=== PATIENT | male | born 1995 | race Two or more races ===

== ENCOUNTER 2016-09-24 00:56 | Emergency (ER) | payer OTHER ==
[2016-09-24 05:54] LABS: ABSOLUTE MONOCYTES (AUTO) 0.3 10^3/uL (0.1-1.4); ABSOLUTE NEUT (AUTO) 5.4 10^3/uL (1.7-8.2); BASOPHILS % (AUTO) 0.2 % (0-2); EOSINOPHILS % (AUTO) 0.3 % (0-6); HEMOGLOBIN 12.8 g/dL (13.5-17.0); HGB HCT DIFFERENCE -0.6; LYMPHOCYTES % (AUTO) 15.4 % (13-45); MEAN CORPUSCULAR HEMOGLOBIN 24.7 pg (27.0-33.4); MEAN CORPUSCULAR HGB CONC 32.8 g/dL (32.0-36.0); MEAN CORPUSCULAR VOLUME 76 fl (80-97); MONOCYTES % (AUTO) 4.5 % (3-13); RED BLOOD COUNT 5.16 10^6/uL (4.35-5.55); RED CELL DISTRIBUTION WIDTH 14.5 % (11.5-14.0); SEGMENTED NEUTROPHILS % (AUTO) 79.6 % (42-78); WHITE BLOOD COUNT 6.8 10^3/uL (4.0-10.5)
[2016-09-24 06:05] LABS: ANION GAP 18 (5-19); BLOOD UREA NITROGEN 12 mg/dL (7-20); CALCIUM 9.3 mg/dL (8.4-10.2); CARBON DIOXIDE 23 mmol/L (22-30); CHLORIDE 107 mmol/L (98-107); CREATININE RESULT 0.69 mg/dL (0.52-1.25); GLUCOSE 105 mg/dL (75-110); MAGNESIUM 2.1 mg/dL (1.6-2.3); POTASSIUM 4.4 mmol/L (3.6-5.0); SODIUM 147.7 mmol/L (137-145)
--- NOTE | 2016-09-24 06:09 | ER Document Report ---
ED General - General Mode of Arrival: Ambulatory Information source: Patient TRAVEL OUTSIDE OF THE [place] IN LAST 30 DAYS: No - HPI Patient complains to provider of: Chest Pain Onset: Just prior to arrival Onset/Duration: Sudden, Persistent Associated symptoms: Chest pain, Nausea, Vomiting. denies: Diarrhea <ELISEO BERRY - Last Filed: 09/24/16 09:25> <DIEUDONNE VASQUEZ - Last Filed: 09/24/16 21:18> - General Chief Complaint: Chest Pain Stated Complaint: POSSIBLE HEART PROBLEM Notes: Patient is a 20-year-old male presenting to the emergency department concerned of chest pain that began just prior to arrival to the emergency department. Patient states the pain came on suddenly, mid chest, and felt more like pressure. Patient also states that he has been experiencing nausea and vomiting. Patient states that he has felt pain like this before, and now has been put on a heart monitor. Patient's hand sole sewer is Dr. He. Patient states that he has been wearing the heart monitor for 2 weeks. Patient also has history of SVT and ablation. (ELISEO BERRY) - Related Data Allergies/Adverse Reactions: No Known Allergies Allergy (Unverified 09/24/16 01:26) Past Medical History - General Information source: Patient - Social History Smoking Status: Unknown if Ever Smoked Family History: Reviewed & Not Pertinent Patient has suicidal ideation: No Patient has homicidal ideation: No - Past Medical History Cardiac Medical History: Reports: Other - Hx SVT Renal/ Medical History: Denies: Hx Peritoneal Dialysis Past Surgical History: Reports: Hx Cardiac Surgery - Ablation 09/2015 [facility] <ELISEO BERRY - Last Filed: 09/24/16 09:25> Review of Systems - Review of Systems Constitutional: No symptoms reported EENT: No symptoms reported Cardiovascular: See HPI, Chest pain. denies: Syncope Respiratory: No symptoms reported Gastrointestinal: See HPI, Nausea, Vomiting. denies: Abdominal pain, Diarrhea Genitourinary: No symptoms reported Male Genitourinary: No symptoms reported Musculoskeletal: No symptoms reported Skin: No symptoms reported Hematologic/Lymphatic: No symptoms reported Neurological/Psychological: No symptoms reported -: Yes All other systems reviewed and negative <ELISEO BERRY - Last Filed: 09/24/16 09:25> Physical Exam - General General appearance: Alert, Lethargic - HEENT Head: Normocephalic, Atraumatic Eyes: Normal Pupils: PERRL - Respiratory Respiratory status: No respiratory distress Chest status: Tender - Reproducible left anterior chest wall tenderness to palpation. Reproducible with arm movement. Breath sounds: Normal Chest palpation: Normal - Cardiovascular Rhythm: Regular Heart sounds: Normal auscultation Murmur: No - Abdominal Inspection: Normal - Back Back: Normal, Nontender - Extremities General upper extremity: Normal inspection, Nontender General lower extremity: Normal inspection, Nontender - Neurological Neuro grossly intact: Yes Cognition: Normal [place] Coma Scale Eye Opening: Spontaneous [place] Coma Scale Verbal: Oriented Chau Coma Scale Motor: Obeys Commands [place] Coma Scale Total: 15 Speech: Normal - Psychological Associated symptoms: Normal affect, Normal mood - Skin Skin Temperature: Warm Skin Moisture: Dry Skin Color: Normal <ELISEO BERRY - Last Filed: 09/24/16 09:25> Course - Laboratory Result Diagrams: 09/24/16 05:30 09/24/16 05:30 <ELISEO BERRY - Last Filed: 09/24/16 09:25> - Laboratory Result Diagrams: 09/24/16 05:30 09/24/16 05:30 <DIEUDONNE VASQUEZ - Last Filed: 09/24/16 21:18> - Vital Signs Vital signs: Temp Pulse Resp BP Pulse Ox 98.4 F 101 H 17 107/44 L 97 09/24/16 09:01 09/24/16 01:23 09/24/16 09:01 09/24/16 09:00 09/24/16 09:01 - Laboratory Laboratory results interpreted by me: 09/24/16 09/24/16 05:30 05:30 Hgb 12.8 L MCV 76 L MCH 24.7 L RDW 14.5 H Seg Neutrophils % 79.6 H Sodium 147.7 H Discharge <ELISEO BERRY - Last Filed: 09/24/16 09:25> <DIEUDONNE VASQUEZ - Last Filed: 09/24/16 21:18> - Discharge Clinical Impression: Chest pain Qualifiers: Chest pain type: unspecified Qualified Code(s): R07.9 - Chest pain, unspecified Condition: Stable Disposition: HOME, SELF-CARE Additional Instructions: Chest Pain of Unclear Cause The exact cause of your chest pain isn't clear. Fortunately, there is no evidence of a dangerous medical condition. Further testing may be required to find the source of the pain. Most often, we find that this pain is coming from the chest wall -- the muscles or rib joints in the chest. But chest pain can come from the lung and lung lining, the esophagus, the heart valves or heart lining, and even the stomach or gallbladder. Rest. Eat lightly until the pain is gone. We may prescribe medicine for pain and inflammation. You should call the physician immediately if the pain radiates to the shoulder, jaw or arms; if you start to run a fever or develop a cough; or if you develop shortness of breath, or other new or alarming symptoms. Your hand sole sewer today for follow-up 1-2 days return for increasing worsening or new symptoms Forms: Return to Work Scribe Documentation - Scribe Written by Lata:: Eliseo Berry 09/24/2016 [id number] acting as scribe for :: Jf <ELISEO BERRY - Last Filed: 09/24/16 09:25>
[2016-09-24 09:31] VITALS: BP 107/44
--- NOTE | 2016-09-24 13:15 | EKG REPORT ---
SEVERITY:- ABNORMAL ECG - SINUS TACHYCARDIA PROBABLE LEFT ATRIAL ABNORMALITY INCOMPLETE RIGHT BUNDLE BRANCH BLOCK : Confirmed by: Alissa Monsivais MD 24-Sep-2016 13:14:03
== END 2016-09-24 09:30 | disposition home or self-care (01) ==
LOC: ER 00:56
DX: R07.9 Chest pain, unspecified (principal); R11.2 Nausea with vomiting, unspecified
CPT/HCPCS: 36415; 71010; 80048; 83735; 85025; 93005; 93010; 99285